=== PATIENT | female | born 1980 ===

== ENCOUNTER 2016-12-02 11:53 | Observation (INO) | payer MEDICAID ==
[~2016-12-02] VITALS: Ht 170.2 cm; Wt 119.5 kg
[2016-12-02 12:00] VITALS: BP 129/77; PULSE 96; RESP 20; TEMP 97.7
[2016-12-02 12:18] VITALS: BP 118/67; PULSE 93
[2016-12-02 12:40] VITALS: BP 117/63; PULSE 86
[2016-12-02 12:50] VITALS: BP 126/66; PULSE 85
[2016-12-02 13:05] VITALS: BP 117/61; PULSE 84
[2016-12-02] MEDS ORDERED: RANI150T12 PO (13:06)
[2016-12-02] MEDS ORDERED: CALC117719 (13:07)
[2016-12-02] MEDS ORDERED: PREN-58 PO (13:08)
[2016-12-02 13:10] VITALS: Ht 170.2 cm; Wt 119.5 kg
[2016-12-02 13:18] LABS: HCT - HEMATOCRIT 35.7 % (36-46); HGB - HEMOGLOBIN 11.9 GM/DL (12-16); MEAN CORPUSCULAR HGB 31.6 UUG (26-34); MEAN CORPUSCULAR HGB CONC(MCHC 33.3 GM/DL (31-37); MEAN CORPUSCULAR VOLUME 94.7 UM3 (80-100); MEAN PLATELET VOLUME 11.2 UM3 (9.4-12.4); RED BLOOD COUNT 3.77 M/MM3 (4.00-5.20); WBC - WHITE BLOOD COUNT 8.6 T/MM3 (4.5-11.0)
[2016-12-02 13:35] LABS: ALBUMIN 3.4 G/DL (3.5-5.0); ALBUMIN/GLOBULIN RATIO 1.1 RATIO (1.1-2.2); ALKALINE PHOSPHATASE 89 U/L (38-126); ALT (SGPT) 29 U/L (9-52); ANION GAP 8 MEQ/L (5-15); AST (SGOT) 18 U/L (14-36); BUN/CREATININE RATIO 16 RATIO (6-26); CALCIUM 9.5 MG/DL (8.4-10.2); CHLORIDE 108 MEQ/L (98-107); CO2 - CARBON DIOXIDE 23 MEQ/L (22-30); CREATININE 0.5 MG/DL (0.7-1.2); GLOMERULAR FILTRATION RATE 141; GLUCOSE 89 MG/DL (65-110); POTASSIUM 3.8 MEQ/L (3.6-5); SODIUM 139 MEQ/L (134-144); TOTAL PROTEIN 6.5 G/DL (6.3-8.2)
--- NOTE | 2016-12-02 14:03 | PNPDOC ---
LOCAL SALES MANAGER Progress Note Subjective Today's Date 12/02/16 at 37w2d sent over from clinic for elevated BPs and nonreactive NST. She's feeling better since she's been here resting. Objective Laboratory Item Value Date Time Hemoglobin 11.9 GM/DL L 12/02/16 1313 Platelet Count 171 T/MM3 12/02/16 1313 Creatinine 0.5 MG/DL L 12/02/16 1313 Aspartate Amino Transf (AST/SGOT) 18 U/L 12/02/16 1313 Alanine Aminotransferase (ALT/SGPT) 29 U/L 12/02/16 1313 Objective Comments FHT 130 and reactive [place]- quiet (1) 37 weeks gestation of (2) Chronic hypertension in obstetric context in third trimester Assessment & Plan: Since her BPs have all been normal here and labs are all normal, we will DC home to decreased activity. Return to my office Mon or Tu for another BP check. Q&A. NALINI BECERRA MD Dec 02, 2016 14:02
[2016-12-02] MEDS ORDERED: RANITIDINE 150 MG TABLET PO SCH (21:00)
== END 2016-12-02 14:27 | disposition home or self-care (01) ==
LOC: MC 11:53
PROVIDERS: ADMIT Obstetrics & Gynecology; ATTEND Obstetrics & Gynecology
DX: O10.013 Pre-existing essential hypertension complicating pregnancy, third trimester (principal); O99.333 Smoking (tobacco) complicating pregnancy, third trimester; F17.210 Nicotine dependence, cigarettes, uncomplicated; O99.343 Other mental disorders complicating pregnancy, third trimester; F32.9 Major depressive disorder, single episode, unspecified; Z3A.37 37 weeks gestation of pregnancy
CPT/HCPCS: 36415; 80053; 85027; G0378; 99218

== ENCOUNTER 2016-12-14 05:21 | Inpatient (IN) | payer MEDICAID ==
[~2016-12-14] VITALS: Ht 167.6 cm; Wt 122.0 kg
[2016-12-14] VITALS (7 sets, daily range): BP systolic 120–140; BP diastolic 68–78; PULSE 86–90; RESP 16–18; TEMP 97.8–98; O2SAT 91–100
[~2016-12-14 05:21] MED LIST: CALC117719; PREN-58 PO; RANI150T12 PO
[2016-12-14] MEDS ORDERED: LR 1,000 ML IV PRN ×2 (05:36→12:19)
[2016-12-14] MEDS ORDERED: OXYTOCIN 30 UNIT in D5LR 500 ML PRN (05:45)
[2016-12-14] MEDS ORDERED: ACETAMINOPHEN 500 MG TABLET PO PRN (05:45)
[2016-12-14] MEDS ORDERED: MAG-AL + SIM LIQUID 30 ML UDC PO PRN (05:45)
[2016-12-14] MEDS ORDERED: LIDOCAINE 1% (10mg/ml) 2ml SDV ID PRN ×2 (05:45→12:30)
[2016-12-14 06:18] LABS: HCT - HEMATOCRIT 36.8 % (36-46); HGB - HEMOGLOBIN 12.5 GM/DL (12-16); MEAN CORPUSCULAR VOLUME 94.1 UM3 (80-100); MEAN PLATELET VOLUME 11.7 UM3 (9.4-12.4); RED BLOOD COUNT 3.91 M/MM3 (4.00-5.20); WBC - WHITE BLOOD COUNT 9.8 T/MM3 (4.5-11.0)
[2016-12-14] MEDS: CALCIUM CARBONATE 500mg Chewable TAB PO PRN ×2 (06:30→09:10)
[2016-12-14] MEDS ORDERED: D5LR 1,000 ML IV PRN (06:30)
[2016-12-14] MEDS: BUTORPHANOL 2 MG/ML IV PRN ×3 (08:59→10:26)
--- NOTE | 2016-12-14 11:01 | ANESOB ---
Epidural/ Date/Time DATE: 12/14/16 TIME: 10:59 Preop Diagnosis Procedure: Labor Epidural Plan: Epidural Height: 5 ' 6.00 " Weight: 122.000 kg BMI: kg/m2 P:3 Medications & Allergies Inpatient Medications Current Medications Medications (Trade) Dose Ordered Sig/[place] Start Time Stop Time Status Last Admin Dose Admin Lidocaine HCl 0.2 mg 0.2 mg PRN PRN 12/14/16 05:45 Lactated Ringer's (Lactated Ringers) 1,000 ml @ 0 mls/hr Q0M PRN 12/14/16 05:36 12/14/16 06:32 0 MLS/HR Acetaminophen (Tylenol Extra Strength) 1-2 TABS = 500-1,000 MG Q4H PRN 12/14/16 05:45 Al Hydroxide/Mg Hydroxide (Maalox) 30 ml Q4H PRN 12/14/16 05:45 Calcium Carbonate 1-2 TABS Q2H PRN 12/14/16 05:45 12/14/16 09:10 1,000 MG Dextrose/Lactated Ringer's 1,000 ml @ 0 mls/hr Q0M PRN 12/14/16 06:30 12/14/16 06:31 0 MLS/HR Oxytocin/Dextrose/ Lactated Ringer's (Pitocin/D5lr) 503 ml @ 0 mls/hr Q0M PRN 12/14/16 05:45 12/14/16 06:31 0 MLS/HR Butorphanol Tartrate (Stadol) 1 mg Q1-2H PRN 12/14/16 09:00 12/14/16 10:26 1 MG Calcium Carbonate (Tums Ultra Strength) 1,177 Mg Tab.chew, (Reported) Last Taken: on 12/14/16 0430 Vit #76/Iron,Carb/FA (Prenatabs Rx Tablet) Unknown Strength Tablet, Unknown Dose PO DAILY, (Reported) Last Taken: on 12/13/162099 Ranitidine HCl (Zantac) 150 Mg Tablet, 150 MG PO BID, (Reported) Take 1 tablet, by mouth, 2 times a day. Last Taken: on 12/13/161999 Coded Allergies: No Known Allergies (Unverified , 12/02/16) Medical/Surgical History Anesthesia PMH: Reports: *Hypertension, Denies: *Diabetes, *DE, Anesthesia Reactions, Asthma, Bld Transfusion Reaction, CHF, COPD, CVA/Stroke/TIA, Cancer, Malignant Hyperthermia, Seizures Smoking Status: Current every day smoker # of Packs/Tins per Day: 0.5 # of Years: 15 Alcohol Intake: none Anesthesia Adverse Reactions: FOUND none Hx of Motion Sickness: No Complications During : No Pertinent Findings Laboratory Tests 12/14/16 06:05 Physical Exam Respiratory: Bilat breath sounds equal, Lungs clear Cardiovascular: No murmur, Regular rate, rhythm Airway Assessment Mallampati Score: III TMD: 3 Fingerbreadths Overall Assessment: May Be Diff Mask Vent., May Be Diff Intubation ASA: 3 Discussion Discussed risks/options/alternatives of anesthesia. Patient consents. Nursing pain assessment noted. Present for Discussion: Present: Spouse Attestation Statement Prior to the delivery of any anesthetic medication, I examined the patient, developed the plan, obtained the patient's consent and discussed the risk and benefits of the procedure with the patient/guardian. If the note happens to be signed after anesthesia start time, it is only due to providing efficient care of the patient and documenting at a time when the computer is available. MEGAN SCHILLING CRNA December 14, 2016 11:01
[2016-12-14] MEDS ORDERED: NORMAL SALINE 100 ML IV ONE ×2 (12:20→12:30)
[2016-12-14] MEDS ORDERED: CEFAZOLIN 1 G in NORMAL SALINE 100 ML IV ONE (12:20)
[2016-12-14] MEDS ORDERED: SODIUM BICARBONATE IV ONE (12:26)
[2016-12-14] MEDS ORDERED: LIDOCAINE 2%/EPI 1:200,000 20ml SDV ONE (12:26)
[2016-12-14] MEDS ORDERED: FAMOTIDINE 20mg IVPB 50 ML IV ONE (12:30)
[2016-12-14] MEDS ORDERED: CEFAZOLIN 2 GM in D5W 50ml 50 ML IV ONE (12:30)
[2016-12-14] MEDS ORDERED: NOZIN NASAL SWAB NS PRN (12:30)
[2016-12-14] MEDS ORDERED: CITRIC ACID/SODIUM CITRATE 30 ML PO ONE (12:30)
[2016-12-14] MEDS ORDERED: ONDANSETRON 4mg/2ml INJECTION ONE (12:41)
[2016-12-14] MEDS ORDERED: NOZIN NASAL SWAB NS ONE (12:45)
[2016-12-14] MEDS ORDERED: MORPHINE SULFATE PF 5mg/10ml VL (DURAMORPH) ONE (13:07)
[2016-12-14] MEDS ORDERED: OXYTOCIN 30 UNIT in D5LR 500 ML IV SCH (13:35)
[2016-12-14] MEDS ORDERED: HYDROCORTISONE 2.5% CREAM 30 GM RECTALLY PRN (13:45)
[2016-12-14] MEDS ORDERED: DiphenhydrAMINE 25 MG CAPSULE PO PRN (13:45)
[2016-12-14] MEDS ORDERED: MILK OF MAGNESIA 30 ML SUSP PO PRN (13:45)
[2016-12-14] MEDS: D5LR 1,000 ML IV SCH ×2 (13:59→17:18)
[2016-12-14] MEDS ORDERED: METOCLOPRAMIDE 10mg/2ml INJECTION IV ONE (14:00)
[2016-12-14] MEDS: IBUPROFEN 800 MG TABLET PO PRN ×2 (15:46→23:56)
--- NOTE | 2016-12-14 15:56 | ANESPO ---
Post-Op Note Date 12/14/16 Time: 15:56 Status Pt Participated in Evaluation: Pt participated in person Vital Signs Date Time Temp Pulse Resp B/P Pulse Ox O2 Delivery O2 Flow Rate FiO2 12/14/16 11:25 18 12/14/16 05:44 97.8 86 140/76 99 Room Air Respiratory Function: Airway patent, Regular respirations Cardiovascular Function: Regular pulse Mental Status: Alert/oriented Pain Level Intensity: 0 Hydration: Taking po fluids Complications during Recovery None apparent Follow-Up Instructions Instructions Per Surgeon ROBB SHERMAN CRNA December 14, 2016 15:56
--- NOTE | 2016-12-14 16:59 | PNPDOC ---
Progress Note PPD0 Rubella: Immune GBS: Negative Blood Type:O pos Subjective 12/14/16 Lochia: Minimal Pain: Controlled Voiding: Luque still in Place Objective Vital Signs Date Time Temp Pulse Resp B/P Pulse Ox O2 Delivery O2 Flow Rate FiO2 12/14/16 11:25 18 12/14/16 05:44 97.8 86 140/76 99 Room Air Urine Output: Good General: Alert and Oriented Assessment (1) Status post primary low transverse section Plan: Routine Care (2) Chronic hypertension in obstetric context in third trimester NALINI BECERRA MD December 14, 2016 16:59
[2016-12-14] MEDS: HYDROCODONE/APAP 5 mg/325 mg TABLET PO PRN ×2 (17:51→21:39)
[2016-12-14] MEDS ORDERED: NALOXONE 0.4mg/ml INJECTION IV PRN (18:30)
[2016-12-14 18:39] LABS: HCT - HEMATOCRIT 34.7 % (36-46); HGB - HEMOGLOBIN 11.7 GM/DL (12-16); MEAN CORPUSCULAR HGB 31.8 UUG (26-34); MEAN CORPUSCULAR HGB CONC(MCHC 33.7 GM/DL (31-37); MEAN CORPUSCULAR VOLUME 94.3 UM3 (80-100); MEAN PLATELET VOLUME 11.8 UM3 (9.4-12.4); RED BLOOD COUNT 3.68 M/MM3 (4.00-5.20); WBC - WHITE BLOOD COUNT 15.4 T/MM3 (4.5-11.0)
[2016-12-14] MEDS: SIMETHICONE 80 MG CHEWABLE TABLET PO CHEW SCH ×2 (20:02→21:39)
[2016-12-14] MEDS ORDERED: DiphenhydrAMINE 50 MG/ML INJECTION IV PRN (21:45)
[2016-12-14] MEDS ORDERED: ONDANSETRON 4mg/2ml INJECTION IV PRN (21:45)
--- NOTE | 2016-12-14 22:00 | NUR ---
Care Assumed Report from Corona Irving RN. Care assumed. Pt resting at this time.
[2016-12-14] MEDS: NOZIN NASAL SWAB NS SCH (23:55)
[2016-12-15] VITALS (8 sets, daily range): BP systolic 88–122; BP diastolic 49–78; PULSE 80–89; RESP 16–18; TEMP 96.3–98; O2SAT 97–100
--- NOTE | 2016-12-15 | NUR ---
Status Pt up walking around room. Rating pain 7/10 in shoulders. Ibuprofen given. Discussed gas pain with patient and encouraged ambulation. Pt states she is very tired. Warm rice bag given. Pt back to bed. SCDs reapplied. Pt encouraged to rest. Denies further needs.
[2016-12-15] MEDS: HYDROCODONE/APAP 5 mg/325 mg TABLET PO PRN ×2 (02:05→07:11)
[2016-12-15] MEDS: RANITIDINE 150 MG TABLET PO SCH ×2 (02:25→09:18)
--- NOTE | 2016-12-15 02:45 | NUR ---
Chart Check 24 hour chart check completed
[2016-12-15] MEDS ORDERED: OXYCODONE/APAP 5mg/325mg TABLET PO PRN (08:30)
--- NOTE | 2016-12-15 08:33 | PNPDOC ---
MASOUD ARMENTA KETTLE CLEANER 12/15/16 0833: Progress Note PPD1 Rubella: Immune GBS: Negative Blood Type:O pos Subjective 12/15/16 Lochia: Moderate Pain: Not Controlled (Patient doesn't feel like the [place] is relieving her pain. Would like to switch to Percocet if possible. ) Voiding: Voiding Nausea and Vomiting: No Nausea/Vomiting Objective VSS AF Vital Signs Date Time Temp Pulse Resp B/P Pulse Ox O2 Delivery O2 Flow Rate FiO2 12/15/16 06:00 97.7 83 16 88/49 Room Air 12/15/16 02:07 100 General: Alert and Oriented Respiratory: Non-labored Abdomen: Fundus Firm Incision: Clean/Dry/Intact Extremities: Non-tender Edema: None Assessment (1) Status post primary low transverse section Plan: Routine Care (2) Chronic hypertension in obstetric context in third trimester Plan Routine Care (Order given to stop [place] and switch patient to Percocet 5mg/ 325mg 1-2 tabs po every 4 hrs prn. Wound vac in place. ) NALINI BECERRA MD 12/15/16 1026: Progress Note Objective Laboratory Item Value Date Time Hemoglobin 11.7 GM/DL L 12/14/16 1809 Plan Patient sleeping. Masoud's note reviewed. MASOUD ARMENTA APRN December 15, 2016 08:33 NALINI BECERRA MD December 15, 2016 10:26
[2016-12-15] MEDS: NOZIN NASAL SWAB NS SCH ×2 (09:15→17:26)
[2016-12-15] MEDS: SIMETHICONE 80 MG CHEWABLE TABLET PO CHEW SCH ×4 (09:15→22:51)
[2016-12-15] MEDS: DOCUSATE CALCIUM 240 MG CAPSULE PO SCH (09:15)
[2016-12-15] MEDS: IBUPROFEN 800 MG TABLET PO PRN ×2 (09:15→17:22)
--- NOTE | 2016-12-15 10:12 | OPNOTEF ---
DATE 12/14/2016 PREOPERATIVE DIAGNOSES 1. 36-year-old 4, para 3 at 39 weeks gestational age. 2. Chronic hypertension. 3. Recurrent late decelerations. POSTOPERATIVE DIAGNOSES 1. 36-year-old 4, para 3 at 39 weeks gestational age. 2. Chronic hypertension. 3. Recurrent late decelerations. PROCEDURE Primary low transverse section. SURGEON Dr. Mirella Ferraro WELLNESS AMBASSADOR Dr. Alondra Brandon ANESTHESIA Epidural by Varghese Valdes CRNA COMPLICATIONS None. EBL 800 ml FINDINGS Viable male , cephalic OP position, Apgars 8/9, weight 3242 grains, name "Keron." Normal-appearing uterus except it was somewhat larger than normal size. The adnexa were not visualized. INDICATIONS Ashley came in for a Pitocin induction this morning due to chronic hypertension. She received an epidural. Her membranes ruptured spontaneously returning clear fluids. The Pitocin only got up to 20 milliunits and she started having recurrent late decelerations. They did not resolve with turning the Pitocin off, so she was consented for a section. DESCRIPTION OF PROCEDURE The patient was taken to the operating room where anesthesia was brought up to adequate surgical levels. She already had Luque catheter in place. She was prepared and draped in the normal sterile fashion. A Pfannenstiel skin incision was made and carried down to the fascia. The fascia was incised in the midline and extended laterally with the Kunz scissors. The fascia was elevated and the underlying rectus muscles were dissected off. The peritoneum was entered bluntly and extended superiorly and inferiorly with good visualization of the bladder. The bladder blade was inserted. The bladder was well down on the uterus, so a bladder flap was not created. The lower uterine segment was incised in a transverse fashion layer by layer with a scalpel and bluntly extended. The 's head was lifted out of the pelvis and delivered atraumatically. The nose and mouth were suctioned. The cord was clamped and cut. The infant was handed to Dr. Winn who was asked to attend due to the nonreassuring heart tones. Now the placenta delivered spontaneously. We attempted to exteriorize the uterus, but it was too large and wouldn't fit through the incision so it was left in situ. The uterus was cleared of all clots and debris. The uterine incision was closed with running locked O Monocryl. There was found to be an extension on the right side. Dr. Brandon closed the uterine extension on the right and the remainder of the uterine incision with running locked O Monocryl. The middle half of the incision was imbricated for hemostasis. The gutters were cleared of all clots and debris. The uterine incision was inspected one final time and still noted to be hemostatic. The peritoneum was closed with running 2-0 Vicryl. Hemostasis was obtained in the rectus muscles with cautery. The fascia was closed with running 0 Vicryl. Bette's fascia was closed with running 2-0 chromic. There was still more than 2 cm from skin to Bette's fascia, so another deep layer was placed to help close this space. The skin was closed with 4-0 Vicryl in a subcuticular manner. Dermabond was placed. Due to the patient's BMI and large amount of subcutaneous tissue, the decision was made to place a Prevena wound VAC. Sponge, sharp and instrument counts were correct. The patient tolerated the procedure well and was taken to the recovery room in good condition. MAXIMILIANO
--- NOTE | 2016-12-15 14:44 | NUR ---
CM THIS WORKER MET WITH PT IN ROOM AT THIS TIME. FOB AT BEDSIDE. BABY SLEEPING IN [place]. THIS WORKER INTRODUCED SELF AND ROLE OF CASE MANAGEMENT. THIS WORKER REVIEWED DISCHARGE PLANNING/NEEDS. PT REPORTED THAT SHE HAS ALL BABY ITEMS AT HOME. MOTHER REPORTED WIC SERVICES (AND HAS APPOINTMENT WITH PERSON AT THE HEALTH DEPARTMENT FOR NEXT WEEK), FOOD STAMPS AND MEDICAL INSURANCE. PT IS PLANNING TO DISCUSS ANTI DEPRESSANT MEDICATIONS WITH DR. BECERRA. PT REPORTED THAT SHE HAD BEEN ON THESE MEDICATION PREVIOUS AND THAT THEY WERE HELPFUL. PT IS THINKING ABOUT STARTING FAMILY THERAPY. THIS WORKER OFFERED ASSISTANCE WITH SETTING UP THIS SERVICES. PT DECLINED AND STATED THAT SHE WOULD BE ABLE TO GET THIS SET UP. PT REPORTED STRESS SINCE HER FATHER'S UNEXPECTED . PT DESCRIBED CUSTODY WITH HER THREE PREVIOUS CHILDREN 50/50 WITH THEIR DAD (THAT LIVES IN [place]). MOTHER DENIED ANY DCF INVOLVEMENT AND THAT THIS WAS THE DECISION MADE IN [place]OME[place]. PT REPORTED THAT SHE HAS HER CHILDREN EVERY WEEKEND, HOLIDAYS AND SUMMER. PT REPORTED THAT HER CHILDREN WILL BE HERE WITH HER THIS SUMMER. PT REPORTED THAT SHE HAS FAMILY SUPPORT IN [place]. FAMILY HAS OFFERED TO BRING MEALS EVERYDAY WHEN THEY RETURN HOME. PT DENIED USE OF DRUGS/ALCOHOL DURING . PT REPORTED THAT SHE HAD TAKEN HER ANTI DEPRESSANTS AND SOME PRESCRIBED PAIN MEDICATIONS IN THE BEGINNING OF THE . PT INTERESTED IN A BREAST PUMP PRESCRIPTION AND IN HAVING A BREAST PUMP TO USE IN THE HOSPITAL. THIS INFORMATION PASSED TO PRIMARY NURSE. PT GIVEN THIS WORKER'S CONTACT INFORMATION AND ENCOURAGED TO CONTACT THIS WORKER WITH ANY NEEDS.
[2016-12-15] MEDS ORDERED: OXYCODONE I.R. 5 MG TABLET PO ONE (16:00)
[2016-12-15] MEDS: CALCIUM CARBONATE 500mg Chewable TAB PO PRN (22:57)
[2016-12-16 00:45] VITALS: BP 132/75; PULSE 86; RESP 16; TEMP 96.7; O2SAT 97
[2016-12-16] MEDS: NOZIN NASAL SWAB NS SCH (01:00)
[2016-12-16] MEDS: IBUPROFEN 800 MG TABLET PO PRN ×2 (01:39→08:53)
--- NOTE | 2016-12-16 03:44 | NUR ---
Chart Check 24 hour chart check completed
--- NOTE | 2016-12-16 03:44 | NUR ---
Shift summary VSS, voiding without difficulty, wound vac in place over abdominal incision, pt reports burning sensation on side of incision states it feels like a sunburn. Pt is receiving Percocet 7.5 and Ibuprofen for incisional pain with some relief. Pt ambulates off unit with FOB occasionally, eating and drinking well. Providing own cares. Will continue to monitor per POC.
[2016-12-16 03:45] VITALS: BP 124/65; PULSE 89; RESP 18; TEMP 98.2; O2SAT 97
--- NOTE | 2016-12-16 08:27 | PNPDOC ---
Progress Note PPD2 Rubella: Immune GBS: Negative Blood Type:O pos Subjective 12/16/16 Lochia: Minimal Pain: Controlled Pain better controlled with the Percocet 7.5 mg. She has burning on the right side of the incision. Nausea and Vomiting: No Nausea/Vomiting Objective Vital Signs Date Time Temp Pulse Resp B/P Pulse Ox O2 Delivery O2 Flow Rate FiO2 12/16/16 03:45 98.2 89 18 124/65 97 Room Air Urine Output: Good General: Alert and Oriented Abdomen: Fundus Firm, Non-tender Wound vac in place. Edema: None Assessment (1) Status post primary low transverse section Plan: Routine Care, Discharge Home, Continue PNV (2) Chronic hypertension in obstetric context in third trimester Plan Reviewed signs of depression. Return to office on Tuesday to remove wound vac. NALINI BECERRA MD December 16, 2016 08:27
[2016-12-16] MEDS ORDERED: IBUP-1547 PO (08:29)
[2016-12-16] MEDS ORDERED: OXYC1TAB11 PO (08:29)
[2016-12-16] MEDS: RANITIDINE 150 MG TABLET PO SCH (08:53)
[2016-12-16] MEDS: SIMETHICONE 80 MG CHEWABLE TABLET PO CHEW SCH (08:53)
[2016-12-16] MEDS: DOCUSATE CALCIUM 240 MG CAPSULE PO SCH (08:53)
[2016-12-16 08:54] VITALS: BP 128/67; PULSE 92; RESP 18; TEMP 98; O2SAT 98
--- NOTE | 2016-12-16 13:31 | NUR ---
Discharge Patient given verbal and written discharge instructions and verbalized understanding. All questions and concerns were addressed and follow up appointments made. Patient discharged with FOB and baby.
== END 2016-12-16 13:44 | disposition home or self-care (01) | DRG 766 ==
LOC: MC 05:21
PROVIDERS: ADMIT Obstetrics & Gynecology; ATTEND Obstetrics & Gynecology
PROC: 3E033VJ Introduction of Other Hormone into Peripheral Vein, Percutaneous Approach (ICD-10-PCS; 2016-12-14)
PROC: 10D00Z1 Extraction of Products of Conception, Low, Open Approach (ICD-10-PCS; principal; 2016-12-14 12:45)
DX: O10.02 Pre-existing essential hypertension complicating childbirth (principal); O76 Abnormality in fetal heart rate and rhythm complicating labor and delivery; O32.8XX0 Maternal care for other malpresentation of fetus, not applicable or unspecified; O99.334 Smoking (tobacco) complicating childbirth; F17.210 Nicotine dependence, cigarettes, uncomplicated; O99.344 Other mental disorders complicating childbirth; F32.9 Major depressive disorder, single episode, unspecified; Z3A.39 39 weeks gestation of pregnancy; Z37.0 Single live birth
CPT/HCPCS: 36415; 85027; 86850; 86900; 86901; 99464